=== PATIENT | male | born 1985 | race Caucasian/White ===

== ENCOUNTER 2017-01-05 07:56 | Emergency (ER) | payer SELFPAY ==
--- NOTE | 2017-01-05 08:21 | UC ---
Skin Complaint HPI - HPI Summary HPI Summary: Patient removed tock from upper chest. not sure how long it has been there. - History of Current Complaint Chief Complaint: UCSkin Time Seen by Provider: 01/05/17 08:18 Stated Complaint: TICK Hx Obtained From: Patient Onset/Duration: Sudden Onset Timing: Constant Onset Severity: Mild Current Severity: None Location: Discrete - upper abodmen Character: Redness Aggravating: Nothing Alleviating: Nothing Associated Signs & Symptoms: Positive: Negative Related History: Possible Reaction to: Insect - Allergy/Home Medications Allergies/Adverse Reactions: Allergies Allergy/AdvReac Type Severity Reaction Status Date / Time Erythromycin Allergy Unknown Verified 01/05/17 08:06 Reaction Details Review of Systems Constitutional: Negative Skin: Other - redness from a tick bite Eyes: Negative ENT: Negative Respiratory: Negative Cardiovascular: Negative Gastrointestinal: Negative Genitourinary: Negative Motor: Negative Neurovascular: Negative Musculoskeletal: Negative Neurological: Negative Psychological: Negative All Other Systems Reviewed And Are Negative: Yes PMH/Surg Hx/FS Hx/Imm Hx Previously Healthy: Yes - Surgical History Surgical History: Yes Surgery Procedure, Year, and Place: tonsillectomy - Family History Known Family History: Negative: Hypertension - Social History Alcohol Use: Rare Substance Use Type: None Smoking Status (MU): Never Smoked Tobacco Physical Exam Triage Information Reviewed: Yes Appearance: Well-Appearing, No Pain Distress, Well-Nourished Vital Signs: Initial Vital Signs Temp 98.8 F 01/05/17 08:01 Pulse 100 01/05/17 08:01 Resp 16 01/05/17 08:01 BP 155/98 01/05/17 08:01 Pulse Ox 100 01/05/17 08:01 Vital Signs Reviewed: Yes Eye Exam: Normal Eyes: Positive: Conjunctiva Clear ENT: Positive: Hearing grossly normal, Pharynx normal, TMs normal Dental Exam: Normal Neck exam: Normal Respiratory Exam: Normal Cardiovascular Exam: Normal Abdominal Exam: Normal Bowel Sounds: Positive: Present Musculoskeletal Exam: Normal Neurological Exam: Normal Skin: Positive: Other - erythema with bug bite, mild skin reaction to the bandaid patient placed Course/Dx - Course Course Of Treatment: hx obtained, exam performed, meds reviewed, educated on lyme disease s/s one time doxycycline given - Differential Diagnoses - Skin Complaint Differential Diagnoses: Abscess, Cellulitis, Contact Dermatitis, Urticaria, Other - Diagnoses Provider Diagnoses: tick bite Discharge - Discharge Plan Condition: Stable Disposition: HOME Prescriptions: DOXYcycline CAP(*) [DOXYcycline 100MG CAP(*)] 200 mg PO DAILY #2 cap Patient Education Materials: Lyme Disease (ED), Tick Bite (ED) Additional Instructions: 1. take the medication with your next meal 2. Follow up with any signs or symptoms of lyme.
[2017-01-05 08:31] VITALS: BP 148/95
== END 2017-01-05 08:31 | disposition home or self-care (01) ==
LOC: UCCORT 07:56
DX: S20.369A Insect bite (nonvenomous) of unspecified front wall of thorax, initial encounter (principal); W57.XXXA Bitten or stung by nonvenomous insect and other nonvenomous arthropods, initial encounter; Y93.9 Activity, unspecified
CPT/HCPCS: 99202; G0463